=== PATIENT | female | born 1995 | race Caucasian/White ===

== ENCOUNTER → 2019-10-06 | Outpatient (CLI) | payer OTHER ==
[~2019-10-06] MED LIST: LAMO200T3 PO; MONO0.25 PO; MULTTAB20 PO; ZONI100C17 PO
--- NOTE | 2019-10-06 18:50 | REP ---
Radionuclide ventriculography: History: Pre chemo ejection fraction. Hodgkin's lymphoma. Technique: 26.0 mCi of technetium 99m labeled RBCs (UltraTag method) is administered. Left anterior oblique imaging is acquired. Cine imaging is acquired and semi automated ejection fraction and wall motion assessment is performed. Scintigraphic findings: Overall left ventricular ejection fraction is normal at 70.3%. Cine images show no evidence of regional wall motion abnormality. Semi automated quantitation shows no additional abnormality. Impression: Normal radionuclide ventriculography. Left ventricular ejection fraction 70.3%. Electronically Signed by Gui Moore MD 10/06/2019 06:42 P
== END ==
LOC: M RAD 13:17
PROVIDERS: ATTEND Internal Medicine Hematology & Oncology
DX: C81.90 Hodgkin lymphoma, unspecified, unspecified site (principal)
CPT/HCPCS: 78472; A9560

== ENCOUNTER → 2019-10-09 | Outpatient (CLI) | payer OTHER ==
--- NOTE | 2019-10-09 10:16 | PFTRPT ---
Height: 63.00 Inches Weight: 117.00 Lbs BSA: 1.54 Diagnosis: HODGKINS DISEASE DATE OF PROCEDURE: 10/09/2019 ORDERED BY: Dr. Cosby Spirometry: Study of excellent technical quality. Some difficulty with effort is identified. Forced vital capacity normal. FEV1 generally in proportion. Obstructive index is, therefore, normal. Flow Volume Loop: Expiratory limb of the flow volume loop does suggest suboptimal performance with the required maneuver. Although favorable bronchodilator response is identified, this finding is in question. Lung Volumes: Total lung capacity normal. Residual volume in proportion. Diffusing Capacity: Diffusing capacity normal. Hemoglobin: Hemoglobin acceptable at 13.4. Airway Mechanics: Airway resistance and conductance are normal. IMPRESSION: Less likely normal study, but clinical correlation with the above findings is required. MTDD
== END ==
LOC: M CARPUL 09:28
PROVIDERS: ATTEND Internal Medicine Hematology & Oncology
DX: C81.91 Hodgkin lymphoma, unspecified, lymph nodes of head, face, and neck (principal)

== ENCOUNTER → 2019-10-10 | Outpatient (CLI) | payer OTHER ==
[~2019-10-10] MED LIST changes: +GASTROGRAFIN SOLUTION 30ML (Q9963) As Ordered ONE; +ISOVUE-370 76% 100ML VIAL (Q9967) As Ordered ONE
--- NOTE | 2019-10-11 03:50 | REP ---
Clinical: Lymphoma. Technique: Axial contrast enhanced images from the lung bases to the pubic symphysis using oral (per protocol) and 100 ml Isovue 370 intravenous contrast material with coronal and sagittal re-formations. Delayed images of the abdomen obtained. Comparison: None. Findings: Lung bases are clear. Visualized portions of the heart and mediastinum are normal. Liver, spleen, pancreas, gallbladder, bilateral adrenal glands and kidneys are essentially normal. 4.9 cm simple left renal cyst noted. The enteric system is without obstruction or acute inflammatory process. Pelvis demonstrates normal bladder and age-appropriate uterus/adnexa. No intraperitoneal or retroperitoneal adenopathy. No ascites. No free air. Abdominal aorta and vasculature normal. Musculoskeletal structures are intact. Impression: 1. 4.9 cm simple left renal cyst. 2. No further acute abdominopelvic pathology appreciated. 3. No adenopathy. No ascites. No mass lesion. Electronically Signed by Kenny Joshi MD 10/11/2019 03:41 A
== END ==
LOC: M RAD 15:47
PROVIDERS: ATTEND Internal Medicine Hematology & Oncology
DX: C81.90 Hodgkin lymphoma, unspecified, unspecified site (principal); N28.1 Cyst of kidney, acquired
CPT/HCPCS: 74177; Q9963; Q9967

== ENCOUNTER → 2019-10-12 | Outpatient (CLI) | payer OTHER ==
[~2019-10-12] MED LIST changes: -GASTROGRAFIN SOLUTION 30ML (Q9963) As Ordered ONE; -ISOVUE-370 76% 100ML VIAL (Q9967) As Ordered ONE; +LIDOCAINE 1% MDV 20ML VIAL As Ordered ONE; +MIDAZOLAM INJ 2 MG/2 ML VIAL (J2250) As Ordered ONE; +PROMETHAZINE INJ 25 MG/ML VIAL (J2550) As Ordered ONE; +VANCOMYCIN HCL 500 MG/10 ML VIAL (J3370) As Ordered ONE; +diphenhydrAMINE INJ 50MG/ML VIAL (J1200) As Ordered ONE; +fentaNYL 100 MCG/2 ML INJECTION (J3010) As Ordered ONE
--- NOTE | 2019-10-12 13:13 | IRHP ---
[facility] IR Pre-Procedure H & P General Date of Service: Oct 12, 2019 Procedure: Same Day Surgery Interval History and Physical I have seen the patient and reviewed last H & P performed within 30 days. There is no significant interval change. History of Present Illness Chief Complaint The patient is a 24-year-old female admitted with a reason for visit of Hodgkins Disease, Chemo. PRE-PROCEDURE DIAGNOSIS: Hodgkin lymphoma HEART: normal rate. LUNGS: normal breathing at rest. ASA Classification ASA Classification: II-Mild systemic disease Mallampati Score: II NPO: Yes Problems with prior sedation: No Obstructive Sleep Apnea: No Plan moderate sedation Allergies Coded Allergies: Penicillins (Verified Allergy, Unknown, 10/05/19) VOMITING amoxicillin (Verified Allergy, Unknown, 10/05/19) VOMITING Home Medications Scheduled Lamotrigine (Lamotrigine), 600 MG PO DAILY, (Reported) Norgestimate-Ethinyl Estradiol ([place]-Linyah 28 Tablet), 1 TAB PO DAILY, (Reported) No122/Iron/Folic Acid ( Multi Tablet), 1 TAB PO DAILY, (Reported) Zonisamide (Zonisamide), 300-400 MG PO QPM, (Reported) VS, I&O, 24H, Fishbone Vital Signs/I&O Vital Signs Date Time Temp Pulse Resp B/P (MAP) Pulse Ox O2 Delivery O2 Flow Rate FiO2 10/12/19 12:39 98.2 92 16 100 Room Air BEVERLY HOLLOWAY MD Oct 12, 2019 13:13
--- NOTE | 2019-10-12 14:30 | POST-OPPD ---
Postoperative Procedure Note Date Of Procedure: Oct 12, 2019 Time Of Procedure: 14:29 PREOPERATIVE DIAGNOSIS: lymphoma POSTOPERATIVE DIAGNOSIS: same FINDINGS: patent right IJ PROCEDURE: right side port SURGEON: flaquito ANESTHESIA: mod sed ESTIMATED BLOOD LOSS: < 5 ml COMPLICATIONS: none POSTOPERATIVE CONDITION: stable BEVERLY HOLLOWAY MD Oct 12, 2019 14:30
[2019-10-12 15:05] VITALS: BP 128/73
--- NOTE | 2019-10-13 14:44 | REP ---
IR Ultrasound and fluoroscopy-guided port placement. IR Ultrasound of the neck. IR Moderate sedation. Clinical information: Lymphoma. Physician: Dr. Bailey. Procedure: The patient was advised of the benefits, risks, and alternatives of the procedure and informed consent was obtained. A time-out was performed with verification of the patient's name, MRN, site of procedure and type of procedure to be performed. The patient was positioned in the supine position on the angiographic table. The site was prepped and draped in the usual sterile fashion. Moderate sedation was performed by the physician including the presence of an independent trained observer who assisted and monitored the patient's level of consciousness and physiologic status. Following the administration of fentanyl and Versed, the physician spent 45 minutes of continuous face to face time with the patient. Ultrasound of the neck reveals a patent and compressible right internal jugular vein. Extensive right neck adenopathy. A fine arts packer radiograph reveals mediastinal adenopathy. The neck and anterior chest wall were anesthetized with lidocaine. The right internal jugular vein was accessed using a microintroducer needle under ultrasound guidance, via a lateral approach. An 018 wire was advanced into the superior vena cava, the needle was removed and a microsheath was placed. An Amplatz wire was then passed into the inferior vena cava. An incision at the internal jugular vein access site and anterior chest wall were made using a scalpel. An incision was made at the anterior chest wall. A small pocket was created using a combination of blunt and sharp dissection. A tunneling device was then used to pass the catheter from the pocket to the neck puncture site. An 8-Malian Angiodynamics Smart of the power port was then positioned in the pocket. The catheter was then measured and cut. The introducer sheath was exchanged for a peel-away sheath. The catheter was passed through the peel-away sheath into the internal jugular vein and the peel-away sheath was removed. The port tip was positioned at the cavoatrial junction. The port was then accessed with a Forte needle. The port flushes and aspirates well. The puncture site in the neck was closed. The chest wall incision was then closed with 2-0 Vicryl and 4-0 Monocryl. Glue and Steri-Strips were applied. A sterile dressing was then applied. The patient tolerated the procedure well and was returned to the PRU in stable condition. Estimated blood loss: <5 ml. Complications: None. Conclusion: 1. Successful placement of an 8-Malian Angiodynamics Smart power port via the right internal jugular vein. The port is ready for immediate use. 2. Patient to follow up in IR clinic in 2 weeks. Thank you for this referral. Electronically Signed by Jerica Bailey MD 10/13/2019 02:42 P
== END ==
LOC: M IRPRO 12:26
PROVIDERS: ATTEND Internal Medicine Hematology & Oncology
DX: C81.90 Hodgkin lymphoma, unspecified, unspecified site (principal)
CPT/HCPCS: 36561; 99152; 99153; C1769; C1788; C1894; J1200; J2250; J3010; J3370

== ENCOUNTER → 2019-10-17 | Outpatient (CLI) | payer OTHER ==
[~2019-10-17] MED LIST changes: -LIDOCAINE 1% MDV 20ML VIAL As Ordered ONE; -MIDAZOLAM INJ 2 MG/2 ML VIAL (J2250) As Ordered ONE; -PROMETHAZINE INJ 25 MG/ML VIAL (J2550) As Ordered ONE; -VANCOMYCIN HCL 500 MG/10 ML VIAL (J3370) As Ordered ONE; -diphenhydrAMINE INJ 50MG/ML VIAL (J1200) As Ordered ONE; -fentaNYL 100 MCG/2 ML INJECTION (J3010) As Ordered ONE
--- NOTE | 2019-10-17 19:48 | REP ---
Whole body PET CT scan for staging of Hodgkin's lymphoma: Comparison is the abdomen/pelvis CT dated 10/10/2019. Whole-body scanning is performed from skull base to the upper thighs. Neck and supraclavicular areas: There is hypermetabolic uptake in numerous cervical nodes bilaterally with significant of the greater number of nodes on the left. The maximal standard uptake value on the left is 14.4 and on the right is 10.6. Chest: There is uptake in numerous mediastinal nodes with a maximal standard uptake value measuring 9.8. There is uptake in a right internal mammary node with a standard uptake value of 4.8. There is uptake in multiple left axillary nodes with a maximal standard uptake value of 5.9. There is uptake in a right supraclavicular node with the maximal uptake value of 10.5. Abdomen, pelvis and upper thighs: There are no hypermetabolic foci. Impression: There are multiple hypermetabolic foci in the neck bilaterally and in the chest as described. No hypermetabolic foci are identified in the abdomen, pelvis or upper thighs. The study is performed with 8.65 mCi of F 18 FDG. Electronically Signed by Raf Collins MD 10/17/2019 07:39 P
== END ==
LOC: M PLARAD 13:02
PROVIDERS: ATTEND Internal Medicine Hematology & Oncology
DX: C81.98 Hodgkin lymphoma, unspecified, lymph nodes of multiple sites (principal)
CPT/HCPCS: 78815; A9552

== ENCOUNTER → 2019-10-24 | Outpatient (POV) | payer OTHER ==
[~2019-10-24] VITALS: Ht 157.5 cm; Wt 53.2 kg
[~2019-10-24] MED LIST changes: +MULT1TAB16 PO; +ONDA8TAB10 PO; +PROC10TA4 PO
[2019-10-24 09:45] VITALS: BP 127/72
--- NOTE | 2019-10-25 10:03 | IRPN ---
[facility] IR Progress Note IR Progress Note DATE: Oct 24, 2019 Status post port placement. Doing well. No fevers or chills. Describe some discomfort at the venotomy site associated with old shoulder injury. On examination, port site appears to be healing well. No redness, tenderness, fluctuance or discharge. Impression: Doing well status post port placement. Discomfort will likely resolve as catheter incorporates itself into the tissues. No further follow-up scheduled unless initiated by patient and/or referring provider. Thank you for this referral Allergies Coded Allergies: Penicillins (Verified Allergy, Unknown, 10/05/19) VOMITING amoxicillin (Verified Allergy, Unknown, 10/05/19) VOMITING VS,Fishbone, I+O VS, Fishbone, I+O Vital Signs Date Time Temp Pulse Resp B/P (MAP) Pulse Ox O2 Delivery O2 Flow Rate FiO2 10/24/19 09:45 97.2 101 18 127/72 (90) 97 Room Air BEVERLY HOLLOWAY MD Oct 25, 2019 10:03
== END ==
LOC: M IRPOV 09:39
PROVIDERS: ATTEND Radiology Diagnostic Radiology
DX: Z45.2 Encounter for adjustment and management of vascular access device (principal)

== ENCOUNTER → 2019-11-02 | Outpatient (CLI) | payer OTHER ==
[~2019-11-02] MED LIST changes: +ISOVUE-370 76% 100ML VIAL (Q9967) As Ordered ONE; +LIDO2.5C15 TOP
--- NOTE | 2019-11-02 11:22 | REPVR ---
PROCEDURE INFORMATION: Exam: CT Neck With Contrast Exam date and time: 11/02/2019 11:01 AM Age: 24 years old Clinical indication: Condition or disease; Cancer; Other: Hodgkins lymphoma; Patient HX: S/P chemo; Additional info: Hodkins lymphoma TECHNIQUE: Imaging protocol: Computed tomography images of the neck with intravenous contrast. Radiation optimization: All CT scans at this facility use at least one of these dose optimization techniques: automated exposure control; mA and/or kV adjustment per patient size (includes targeted exams where dose is matched to clinical indication); or iterative reconstruction. Contrast material: ISOVUE 370; Contrast volume: 75 ml; Contrast route: IV; COMPARISON: PT PET/CT Skull/mid thigh 10/17/2019 3:21 PM FINDINGS: Nasopharynx: Unremarkable. Oropharynx: Unremarkable. No significant tonsillar enlargement. Hypopharynx: Unremarkable Larynx: Unremarkable. Normal epiglottis. Retropharyngeal space: Unremarkable. Submandibular/Parotid glands: Normal. Glands are normal in size. Thyroid: Normal. No enlarged or calcified nodules. Lymph nodes: There is bulky, extensive multilevel left cervical lymphadenopathy extending into the left supraclavicular region. Dominant left lower IJ lymph node measures up to 4 cm in diameter. Less pronounced lymphadenopathy is noted on the right.. Trachea: Visualized trachea is unremarkable. Lungs: Unremarkable as visualized. Bones/joints: Unremarkable. No acute fracture. Soft tissues: Unremarkable. No significant soft tissue swelling. IMPRESSION: Severe, extensive masslike cervical adenopathy the asymmetric to the left, compatible with submitted history lymphoma. Similar findings are parent on preceding PET-CT examination. Electronically signed by: Talya Pearce On 11/02/2019 11:22:11 AM
--- NOTE | 2019-11-02 11:30 | REP ---
Clinical: Hodgkin's lymphoma. Technique: Axial contrast enhanced images from the thoracic inlet to the upper abdomen with coronal and sagittal re-formations using 100 ml Isovue 370 intravenous contrast material. Comparison: None. Findings: Significant adenopathy at the visualized lower neck and thoracic inlet is appreciated along with mediastinal adenopathy. Specifically, right paratracheal shailesh complex measures roughly 4.0 x 2.9 x 5.3 cm along with prevascular lymph nodes measuring 1.6 x 1.3 x 1.5 cm. Left axillary lymph node measures 1.8 x 1.7 x 2.2 cm. No hilar adenopathy identified. The bilateral lung wallis are well-aerated and clear. No consolidation, nodule or mass. No effusion. No pneumothorax. Tracheobronchial tree is patent. Mediastinum demonstrates normal thoracic aorta, pulmonary vasculature and heart/pericardium. Surrounding musculoskeletal structures are intact without focal acute abnormality. [id number] is identified with tip extending into the SVC/right atrium. Impression: 1. Marked adenopathy noted at the visualized neck/thoracic inlet along with mediastinal adenopathy and solitary left axillary lymph node. 2. The bilateral lung wallis are clear. Electronically Signed by Kenny Joshi MD 11/02/2019 11:21 A
== END ==
LOC: M RAD 10:27
PROVIDERS: ATTEND Internal Medicine Hematology & Oncology
DX: C81.91 Hodgkin lymphoma, unspecified, lymph nodes of head, face, and neck (principal)
CPT/HCPCS: 70491; 71260; Q9967

== ENCOUNTER → 2019-11-07 | Outpatient (CLI) | payer OTHER ==
[~2019-11-07] MED LIST changes: -ISOVUE-370 76% 100ML VIAL (Q9967) As Ordered ONE
[2019-11-07 11:49] LABS: BASO % 0.7 % (0.0-1.0); EOS # 0.1 10^3/uL (0.0-0.5); EOS % 2.7 % (0.0-3.0); HEMATOCRIT 38.9 % (36.0-47.0); HEMOGLOBIN 13.1 g/dl (12.0-15.5); LYMPH # 1.4 10^3/uL (1.5-5.0); LYMPH % 32.2 % (24.0-44.0); MEAN CORPUSCULAR HEMOGLOBIN 30.5 pg (27.0-33.0); MEAN CORPUSCULAR HGB CONC 33.7 g/dl (32.0-36.5); MEAN CORPUSCULAR VOLUME 90.5 fl (80.0-96.0); MONO # 0.3 10^3/uL (0.0-0.8); MONO % 6.9 % (0.0-5.0); NEUTROPHILS # 2.6 10^3/uL (1.5-8.5); NEUTROPHILS % 57.1 % (36.0-66.0); PLATELET COUNT, AUTOMATED 461 10^3/uL (150-450); WHITE BLOOD COUNT 4.5 10^3/uL (4.0-10.0)
[2019-11-07 12:11] LABS: ALBUMIN 3.7 GM/DL (3.2-5.2); ALT/SGPT 15 U/L (12-78); BILIRUBIN,TOTAL 0.2 MG/DL (0.2-1.0); BLOOD UREA NITROGEN 13 MG/DL (7-18); CALCIUM LEVEL 9.5 MG/DL (8.5-10.1); CARBON DIOXIDE LEVEL 26 MEQ/L (21-32); CHLORIDE LEVEL 104 MEQ/L (98-107); CREATININE FOR GFR 0.86 MG/DL (0.55-1.30); GLOMERULAR FILTRATION RATE > 60.0 (>60); GLUCOSE, FASTING 91 MG/DL (70-100); SODIUM LEVEL 138 MEQ/L (136-145); TOTAL PROTEIN 7.7 GM/DL (6.4-8.2)
[2019-11-07 12:21] LABS: TOTAL 25(OH) VITAMIN D 25.6 NG/ML (30.0-100.0)
[2019-11-07 12:22] LABS: FOLATE > 24.0 NG/ML; VITAMIN B12 LEVEL 341 PG/ML
== END ==
LOC: M LAB 10:51
PROVIDERS: ATTEND Psychiatry & Neurology Neurology
DX: Z51.81 Encounter for therapeutic drug level monitoring (principal); Z79.899 Other long term (current) drug therapy; R56.9 Unspecified convulsions

== ENCOUNTER → 2019-12-19 | Outpatient (CLI) | payer OTHER ==
[~2019-12-19] MED LIST changes: +ALLE180T33 PO
--- NOTE | 2019-12-19 15:50 | REP ---
PET/CT: HISTORY: Restaging Hodgkin's lymphoma. Status post chemotherapy. COMPARISONS: Comparison PET/CT study October 17, 2019. Comparison CT neck and chest with IV contrast November 02, 2019. TECHNIQUE: 51 minutes following the intravenous injection of a 8.41 mCi dose of F-18 FDG, three-dimensional PET scintigraphy is acquired from the skull base to the proximal thighs. Triplanar noncontrast CT scanning is acquired through the same anatomic range for attenuation correction, and image registration with scan parameters optimized to minimize radiation exposure to the patient. PET scintigraphy and CT datasets were fused and displayed on a workstation with multiplanar and projection display capability. PET/CT FINDINGS: PET scintigraphy is much improved from the comparison study. The bulky left neck lymphadenopathy is improved. There is still some hypermetabolic uptake, mild in degree in the head and neck soft tissues. Maximum standard uptake value in these residual, improved lymph nodes, is in the range of 2.14-4.54. Previously 14.4. They are much improved in size. There is no abnormal hypermetabolic uptake in the hilar or mediastinal structures. No abnormal pulmonary parenchymal uptake is seen. No abnormal uptake is seen in the liver or spleen. A cyst is again noted in the left kidney. IMPRESSION: Significant improvement noted in the bilateral neck and mediastinal hypermetabolic uptake. Improvement noted in size as well. Electronically Signed by Gui Moore MD 12/19/2019 04:50 P
== END ==
LOC: M PLARAD 09:07
PROVIDERS: ATTEND Internal Medicine Hematology & Oncology
DX: C81.91 Hodgkin lymphoma, unspecified, lymph nodes of head, face, and neck (principal); N28.1 Cyst of kidney, acquired; Z92.21 Personal history of antineoplastic chemotherapy
CPT/HCPCS: 78815; A9552

== ENCOUNTER → 2019-12-20 | Outpatient (CLI) | payer OTHER ==
--- NOTE | 2019-12-20 10:58 | PFTRPT ---
Site: [facility], [address] [place], [address] ID: [id number] Name: DANNI MILIAN Visit Date: 12/20/2019 Second ID: [id number] Referring Doctor: Ruben Hatfield MD Reviewing Doctor: Eliud Cosby MD Asset Availability Leader: Miriam Beltran Age: 24 : 1995 Sex: Female Race: Height: 63.00 Inches Weight: 120.00 Lbs BSA: 1.56 Order IDs: [id number] Requested Test(s): <RESP-PFT.DLCO> Diagnosis: HODGKINS DISEASE test meet the ATS standards for acceptability and repeatability. IVC is less than 90% of VC. DLCO may be underestimated. Review Status: Not Reviewed Pre-Bronch Post-Bronch Pred Actual %Pred Actual %Chng SPIROMETRY FVC (L) 3.67 3.36 91 FEV1 (L) 3.17 3.04 95 FEV1/FVC (%) 86 90 105 FEF 25% (L/sec) 5.72 4.55 79 FEF 50% (L/sec) 4.66 3.78 81 FEF 75% (L/sec) 2.02 2.06 101 FEF 25-75% (L/sec) 3.56 3.34 93 FEF Max (L/sec) 6.78 4.61 67 FIVC (L) 2.68 FIF 50% (L/sec) 3.96 3.16 79 FIF Max (L/sec) 3.41 MVV (L/min) 110 51 46 Expiratory Time (sec) 6.56 Back Extrap Vol (L) 0.12 Time To FEFmax (sec) 0.147 LUNG VOLUMES SVC (L) 3.67 2.80 76 IC (L) 2.24 2.02 90 ERV (L) 1.43 0.78 54 TGV (L) 2.66 2.34 87 RV (Pleth) (L) 1.23 1.56 127 TLC (Pleth) (L) 4.90 4.36 89 RV/TLC (Pleth) (%) 25 36 143 DIFFUSION DLCOunc (ml/min/mmHg) 25.14 27.87 110 DLCOcor (ml/min/mmHg) 25.14 27.71 110 DL/VA (ml/min/mmHg/L) 5.13 4.86 94 VA (L) 4.90 5.70 116 BHT (sec) 10.82 IVC (L) 2.46 TLC (SB) (L) 5.85 AIRWAYS RESISTANCE Raw (cmH2O/L/s) 1.86 1.76 94 Gaw (L/s/cmH2O) 1.03 0.63 60 sRaw (cmH2O*s) 4.76 4.12 86 sGaw (1/cmH2O*s) 0.20 0.26 127 BLOOD GASES Hgb (gm/dL) 13.6
== END ==
LOC: M CARPUL 09:47
PROVIDERS: ATTEND Internal Medicine Hematology & Oncology
DX: C81.91 Hodgkin lymphoma, unspecified, lymph nodes of head, face, and neck (principal)

== ENCOUNTER → 2020-02-20 | Outpatient (CLI) | payer OTHER ==
[~2020-02-20] MED LIST changes: +POTA10CA32 PO; +RIZA10TA58 PO; +TRI-1TAB PO
--- NOTE | 2020-02-21 08:42 | REP ---
REASON FOR EXAM: Followup Hodgkin's lymphoma. Prior PET/CT examinations 12/19/2019 and 10/17/2019 have been reviewed along with prior CT examinations of the neck and chest of 11/02/2019 and abdomen and pelvis of 10/10/2019. The patient finished last regimen of chemotherapy 02/14/2020. After the intravenous administration of 8.5 millicuries of FDG 18, triplane whole body PET/CT was performed from the skull base to the mid thigh. The patient has currently stage II A Hodgkin's lymphoma. The patient's previous measured lesions have Deauville scores of 3 out of 4. In the left neck cervical lymph node chain, there is a single focus of abnormal hypermetabolic activity which has maximal SUV valve of 6.57. Although, hypermetabolic, the size of this lesion has not increased compared to the latest prior PET/CT. There is a focus of hypermetabolic activity seen in the inferior axilla bilaterally. This is immediately adjacent to the thorax and is likely secondary to accessory muscles of respiration and activity within those muscles rather than lymphadenopathy since standard CT scanning through that region shows no corresponding lymphadenopathy or even a normal size lymph node. Additionally, there are other areas clearly defined as muscular uptake. Aside from hypermetabolic activity seen in the left neck as described above, no other abnormal hypermetabolic foci are seen in the neck, chest, abdomen or pelvis. IMPRESSION: There is a single abnormal hypermetabolic focus seen in the left neck as described above and when the CT components of this exam are compared to the CT components of the latest prior exam of 12/19/2019, the size of that node in the left lymph node chain has decreased in size, although the maximal SUV valve has increased somewhat with today's highest reading of 6.57 to the prior exam's highest reading of 4.54. The maximal organ uptake in the liver is 3.18 and the maximal blood pool uptake is 2.54. This renders no change in the patient's Deauville score, which again based on that 5-point scale, is 4 out of 5. Electronically Signed by Huber Esposito DO 02/21/2020 11:25 A
== END ==
LOC: M PLARAD 14:29
PROVIDERS: ATTEND Internal Medicine Medical Oncology
DX: C81.78 Other Hodgkin lymphoma, lymph nodes of multiple sites (principal)
CPT/HCPCS: 78815; A9552

== ENCOUNTER → 2020-04-04 | Outpatient (CLI) | payer OTHER ==
[~2020-04-04] MED LIST changes: +MAGICMW SSP; +POTA20TA6 PO
== END ==
LOC: M ONCR 09:51
PROVIDERS: ATTEND Radiology Radiation Oncology
DX: C81.18 Nodular sclerosis Hodgkin lymphoma, lymph nodes of multiple sites (principal)

== ENCOUNTER → 2020-05-20 | Outpatient (RCR) | payer OTHER | LOC: M ONCR 04-29 14:52 | PROVIDERS: ATTEND General Practice | DX: C81.18 Nodular sclerosis Hodgkin lymphoma, lymph nodes of multiple sites (principal); Z88.0 Allergy status to penicillin ==

== ENCOUNTER 2020-05-28 08:46 | Outpatient (RCR) | payer OTHER | END 2020-06-19 | LOC: M ONCR 08:46 | PROVIDERS: ATTEND General Practice | DX: C81.18 Nodular sclerosis Hodgkin lymphoma, lymph nodes of multiple sites (principal); J02.9 Acute pharyngitis, unspecified; Z88.0 Allergy status to penicillin ==

== ENCOUNTER → 2020-07-16 | Outpatient (CLI) | payer OTHER ==
--- NOTE | 2020-07-17 08:39 | REP ---
INDICATION: RESTAGING CLASSICAL HODGKINS LYMPHOMA COMPARISON: Comparison PET-CT studies are reviewed from February 20, 2020, December 19, 2019, and October 17, 2019.. TECHNIQUE: 1 hour and 43 minutes following the intravenous injection of a 8.40 mCi dose of F-18 FDG, three-dimensional PET scintigraphy is acquired from the skull base to the proximal thighs. Triplanar noncontrast CT scanning is acquired through the same anatomic range for attenuation correction, and image registration with scan parameters optimized to minimize radiation exposure to the patient. PET scintigraphy and CT datasets were fused and displayed on a workstation with multiplanar and projection display capability. FINDINGS: The metabolic activity in the 2 reference organs is assessed as follows: Liver maximum standard uptake value is 2.93. Blood pool maximum standard uptake value is 2.29. In the head and neck soft tissues, there is multifocal bilateral brown fat uptake. There is 1 normal-sized lymph node in the neck on the left just deep to the sternocleidomastoid muscle at the level of the hyoid bone. This measures only 7 mm in short axis dimension. It is not pathologically enlarged. There is discernible FDG accumulation, maximum standard uptake value 2.83. This is felt to be Deauville score 2/5. Previously maximum standard uptake value here was 6.57. No other abnormal hypermetabolic uptake is seen in the head and neck. There are 2 foci of borderline uptake at the posterior pleural surface of the apex of each lung, 1 on each side. There is no discernible pulmonary parenchymal opacity and these are of doubtful significance. Maximum standard uptake value here is 2.68 on the right and 2.23 on the left. There is a new focus of hypermetabolic uptake in the posterior 6th rib on the left at its junction with the transverse process. No bony destructive lesion is seen. No pulmonary parenchymal or pleural mass is observed. However, maximum standard uptake value which appears to be in the posterior segment of the left 6th rib is 6.88. Since this is new, Deauville score here would be 5. No other abnormal skeletal hypermetabolic uptake is seen. No other abnormal uptake is seen within the thorax. No extrathoracic hypermetabolic uptake is observed. No abnormal uptake is seen in the abdomen or pelvis. PET-CT is otherwise unremarkable. IMPRESSION: There is a new focus of hypermetabolic uptake which appears to be in the left posterior 6th rib without a corresponding abnormality on accompanying CT images. No adjacent pleural or parenchymal changes are seen. This is of uncertain significance although SUV value is moderately elevated. There is a identifiable but normal sized lymph node in the left cervical lymph node chain with maximum standard uptake value of 2.83. <Electronically signed by Juwan Moore > 07/17/20 [id number]
== END ==
LOC: M PLARAD 07:28
PROVIDERS: ATTEND General Practice
DX: C81.18 Nodular sclerosis Hodgkin lymphoma, lymph nodes of multiple sites (principal); R93.7 Abnormal findings on diagnostic imaging of other parts of musculoskeletal system
CPT/HCPCS: 78815; A9552

== ENCOUNTER → 2020-07-24 | Outpatient (CLI) | payer OTHER ==
--- NOTE | 2020-07-24 09:55 | RADONC ---
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 She completed 4 cycles of ABVD and had a persistent focus of DS 4 disease in a left cervical node on post chemotherapy PET. She underwent ISRT with 36 Gy to the left cervical node and 30 Gy to initially involved sites of disease in 20 fractions completed on 05/28/20. Diagnosis/Treatment History Oncologic History Diagnosis: Stage IIA Hodgkin's Lymphoma- classic, nodular-sclerosing. Meets 1/4 criteria for unfavorable disease, i.e., has 4 sites of disease - b/l neck, mediastinal, LAD and left axillary LAD, but otherwise has no bulky mediastinal disease, no B symptoms and ESR is 23. Initial CT Neck/Chest- largest Lt neck conglomerate lymph node mass 4.5 x 3.5 cm, largest right paratracheal mass 3.5 x 3.4 cm, no hilar LAD, left axilla - 1.[address], right neck/right supraclavicular largest LN 0.8 x 1.2 cm, ESR 23 on 10/05/19 -09/11/2019- left level [address] BX - classical Hodgkin's lymphoma, nodular sclerosis. (-) CD23, (-) CD20, (-) CD45/LCA (-), DELIO RK (-), CD15 Elsie M1 - focally positive, CD30 (+), PAX5 weakly (+) - IHC C/subdural nodular sclerosis subtype. -Relocated to [place]. -10/06/19- MUGA EF - 70.3%, 10/17/19 baseline PET multiple hypermetabolic foci in the neck b/l and chest. -10/30/2019: commenced ABVD for 4 cycles -12/19/2019 PET-CT: Significant improvement noted in the bilateral neck and mediastinal hypermetabolic uptake. Improvement noted in size as well. -02/20/2020 PET/CT scan. A single focus of left cervical chain with SUV of 6.57 -04/30/20-05/28/20 ISRT 36 Gy to DS4 focus L neck 30 Gy to BL cervical, supraclav, axillae in 20 fractions 07/16/20 PET-CT FINDINGS: The metabolic activity in the 2 reference organs is assessed as follows: Liver maximum standard uptake value is 2.93. Blood pool maximum standard uptake value is 2.29. In the head and neck soft tissues, there is multifocal bilateral brown fat uptake. There is 1 normal-sized lymph node in the neck on the left just deep to the sternocleidomastoid muscle at the level of the hyoid bone. This measures only 7 mm in short axis dimension. It is not pathologically enlarged. There is discernible FDG accumulation, maximum standard uptake value 2.83. This is felt to be Deauville score 2/5. Previously maximum standard uptake value here was 6.57. No other abnormal hypermetabolic uptake is seen in the head and neck. There are 2 foci of borderline uptake at the posterior pleural surface of the apex of each lung, 1 on each side. There is no discernible pulmonary parenchymal opacity and these are of doubtful significance. Maximum standard uptake value here is 2.68 on the right and 2.23 on the left. There is a new focus of hypermetabolic uptake in the posterior 6th rib on the left at its junction with the transverse process. No bony destructive lesion is seen. No pulmonary parenchymal or pleural mass is observed. However, maximum standard uptake value which appears to be in the posterior segment of the left 6th rib is 6.88. Since this is new, Deauville score here would be 5. No other abnormal skeletal hypermetabolic uptake is seen. No other abnormal uptake is seen within the thorax. No extrathoracic hypermetabolic uptake is observed. No abnormal uptake is seen in the abdomen or pelvis. PET-CT is otherwise unr emarkable. IMPRESSION: There is a new focus of hypermetabolic uptake which appears to be in the left posterior 6th rib without a corresponding abnormality on accompanying CT images. No adjacent pleural or parenchymal changes are seen. This is of uncertain significance although SUV value is moderately elevated. There is a identifiable but normal sized lymph node in the left cervical lymph node chain with maximum standard uptake value of 2.83. Interval History Dannielle feels well, her dysphagia has improved significantly, she is able to eat pineapple and other citrus fruits again without discomfort. Her taste for cheesecake and sweets has been affected however and have yet to return to normal. The skin of her BL neck were red and peeling, this however has subsided and mild hyperpigmentation is all that remains. She reports some LANDEROS when she goes up stairs, she has no pleuritic pain with this. 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 She denies any back pain, she did however have an mild trauma to her left side at work last week before her PET- CT, a bookcase fell and hit her left side. She had no lingering pain or discomfort the day after this. Appetite is good and weight is stable. No fevers, chills, night sweats. Current Therapy Surveillance Stage HL stage IIA unfavorable per GHSG criteria, with known chemorefractory left cervical node (DS 4) Social History: Non-smoker Non-drinker Allergies / Meds Allergies: Coded Allergies: Penicillins (Verified Allergy, Unknown, 10/05/19) VOMITING amoxicillin (Verified Allergy, Unknown, 10/05/19) VOMITING Home Meds Active Scripts Magic Mouthwash (First-Mouthwash Blm) 1 Ea Susp, 15 ML SSP QIDP PRN for MUCOSITIS, #240 ML 5 Refills (Diphenhydramine/maalox/lidocaine 1:1:1) May compound if kit unavailable/not covered by insurance Prov:CASSIE VALENZUELA MD 05/10/20 Potassium Chloride (Potassium Chloride) 10 Meq Capsule.er, 10 MEQ PO DAILY, #30 CAP 1 Refill Prov:PEÑA HESS MD 01/15/20 Lidocaine/Prilocaine (Lidocaine-Prilocaine Cream) 2.5%/2.5% Cream..g., 1 DOSE TOP ASDIRECTED, #30 GRAMS 1 Refill Apply dime size to port area. Do not rub in, cover with saran wrap to protect clothing. Prov:ROSANA MONTEMAYOR MD 10/30/19 Prochlorperazine Maleate (Prochlorperazine Maleate) 10 Mg Tablet, 1 TAB PO Q4- 6HP PRN for NAUSEA, #40 TAB 1 Refill Prov:ROSANA MONTEMAYOR MD 10/26/19 Ondansetron HCl (Ondansetron HCl) 8 Mg Tablet, 8 MG PO BID for nausea/vomiting, #30 TAB 1 Refill TAKE ONE TAB BY MOUTH TWICE A DAY ON DAYS 2-5 OF CHEMO, THEN THREE TIMES A DAY NEEDED FOR NAUSEA Prov:ROSANA MONTEMAYOR MD 10/26/19 Reported Medications Rizatriptan Benzoate (Rizatriptan) 10 Mg Tab.rapdis, 10 MG PO DAILY 01/29/20 Norgestimate-Ethinyl Estradiol (Hht-Ko-Njzafffw Tablet) 1 Each Tablet, 1 TAB PO DAILY for 30 Days, #30 TAB 12/25/19 Fexofenadine HCl (Celeste Allergy) 180 Mg Tablet, 180 MG PO DAILY for allergy symptoms for 30 Days, #30 TAB 11/27/19 Mv-Min/Iron/Folic/Calcium/Vitk (Women's Multivitamin Tablet) 1 Each Tablet, 1 TAB PO DAILY, TAB 10/23/19 Zonisamide (Zonisamide) 100 Mg Capsule, 300-400 MG PO QPM for 30 Days, CAP 10/05/19 Lamotrigine (Lamotrigine) 200 Mg Tablet, 600 MG PO DAILY for 30 Days, #30 TAB 10/05/19 Review of Systems Review of Systems Constitutional: Reports: Normal appetite; Denies: Chills, Fever, Night Sweats, Weakness, Fatigue, Weight Loss Eyes: Denies: Pain, Vision change HEENT: Denies: Head Aches Skin: Denies: Rash, Lesions Pulmonary: Reports: Dyspnea; Denies: Cough, Pleuritic Chest Pain Cardiovascular: Denies: Chest Pain, Palpitations Gastrointestinal: Denies: Nausea, Vomiting, Abdominal Pain Genitourinary: Denies: Dysuria, Frequency Hematologic: Denies: Bruising, Bleeding Excessively Endocrine: Denies: Polydipsia, Heat Intolerance, Cold Intolerance Musculoskeletal: Denies: Neck pain, Arm pain, Back pain, Joint pain Neurological: Denies: Weakness, Numbness, Change in Speech Psych: Reports: Mood Normal; Denies: Anxiety, Depression Physical Examination Vital Signs Ht 62" Wt 134 lb BMI 24 T 97.5 P 91 RR 16 BP 101/67 O2 98% Pain 0 Fatigue 1 General Exam: Positive: Alert, Cooperative; Negative: No Acute Distress Eye Exam: Positive: PERRLA ENT EXAM: Positive: Atraumatic, Pharynx Normal Neck Exam: Positive: Supple; Negative: Lymphadenopathy Chest Exam: Positive: Clear to auscultation, Normal air movement; Negative: Wheezing Heart Exam: Positive: Rate Normal, Regular Rhythm Abdomen Exam: Positive: Soft; Negative: Tenderness, Hepatospenomegaly Extremity Exam: Negative: Edema Skin Exam: Positive: Nl turgor and temperature, Other skin issue (Mild hyperpigmentation noted BL low cervical and supraclavicular skin); Negative: Rash Neuro Exam: Positive: Normal Gait, Normal Speech, Strength at 5/5 X4 ext, Cranial Nerves 3-12 NL Psych Exam: Positive: Mental status NL, Mood NL; Negative: Anxiety Diagnostic and Laboratory Diagnostic Review Radiologic images, relevant labs and pathology reports were personally reviewed and discussed with Ms. Romo. Assessment and Plan Impression Assessment Ms. 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 She completed 4 cycles of ABVD and had a persistent focus of DS 4 disease in a left cervical node on post chemotherapy PET. She underwent ISRT with 36 Gy to the left cervical node and 30 Gy to in itially involved sites of disease in 20 fractions completed on 05/28/20. She is doing well overall, nearly recovered from her post-RT sequelae. She has some persistent skin hyperpigmentation which may be permanent. I addition she has some dysgeusia which I expect will resolve in the coming months. 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 I think it would be prudent to repeat PFTs within 1 year. This can be considered at a later appointment. I will oversee her survivorship care including TFTs, PFTs, heart function per NCCN guidelines beginning with her 6 month follow up appointment. In the meantime, she has a PET-CR in the initially involved and subsequently consolidated sites. This is reassuring. However she has on her most recent PET- CT an ill-defined avid focus in the left posterior 6th rib and/or possibly the pleura. This is asymptomatic, may be related to recent minor trauma, or sub- clinical infection. It may also represent extranodal relapse although per the literature this would be especially uncommon. Despite this I think we must follow closely given that she had a chemo refractory focus of disease in her neck in the setting of initial bulk which may speak to bad biology. In discussing with radiology, we agreed that it would be best to follow up this abnormality with a short interval PET-CT in 2 months time. If the focus persists or declares itself malignant morphologically, I would then proceed without hesitation to biopsy. My hope is that it resolves spontaneously however. Dannielle agrees with this plan. I will relay these findings to Dr. Kang who is also seeing her in the coming weeks. Performance Status ECOG 0 Plan PET-CT 2 months to follow new avid focus left posterior 6th rib/pleura Will pursue biopsy if focus persists at that time Reassuring is the metabolic CR in the HN region Will order survivorship studies as mentioned above once the etiology of new lesion is resolved Ms. Romo was encouraged to call with questions or concerns in the interim period. CASSIE VALENZUELA MD Jul 24, 2020 09:55
== END ==
LOC: M ONCR 08:46
PROVIDERS: ATTEND General Practice
DX: C81.18 Nodular sclerosis Hodgkin lymphoma, lymph nodes of multiple sites (principal)

== ENCOUNTER → 2020-10-01 | Outpatient (CLI) | payer OTHER ==
--- NOTE | 2020-10-02 14:58 | REP ---
INDICATION: RESTAGING HODGKIN LYMPHOMA MULTIPLE SITES C81.18. COMPARISON: 07/16/[address] chest 11/02/2019, CT neck 11/02/2019, and CT abdomen and pelvis 10/10/2019. TECHNIQUE: After the intravenous administration of 8.85 mCi of FDG 18 triplane whole-body PET-CT was performed from the skull base to the mid thigh. FINDINGS: The bulky lymphadenopathy seen on the prior CT examination of the neck has improved significantly when the CT component of this CT-PET is compared to the prior CT scan. An exact comparison is difficult since the diagnostic CT was performed after intravenous contrast administration which is contrary to the way this CT examination was performed. There is, however, hypermetabolic activity seen within the bilateral cervical lymph node chain, right greater than left, and with SUV values ranging from 2.5 to 3.0 as maximal values. Even the small round lymph nodes in both right and left paraspinal spaces are hypermetabolic with maximal SUV values of 2.8 The bulky adenopathy seen previously in the mediastinum on the prior CT scan is markedly improved. Borderline and mildly enlarged mediastinal lymph nodes are again noted but there is no evidence of hypermetabolic activity seen in any of those lymph nodes and having maximal SUV values of 1.96. No other areas of abnormal hypermetabolic activity are seen in the neck, chest, abdomen, or pelvis. IMPRESSION: Hypermetabolic neck activity and related findings as described above. <Electronically signed by Huber Esposito > 10/02/20 [id number]
== END ==
LOC: M PLARAD 09:09
PROVIDERS: ATTEND General Practice
DX: C81.18 Nodular sclerosis Hodgkin lymphoma, lymph nodes of multiple sites (principal)
CPT/HCPCS: 78815; A9552

== ENCOUNTER → 2020-10-16 | Outpatient (CLI) | payer OTHER ==
--- NOTE | 2020-10-16 16:16 | RADONC ---
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 She completed 4 cycles of ABVD and had a persistent focus of DS 4 disease in a left cervical node on post chemotherapy PET. She underwent ISRT with 36 Gy to the left cervical node and 30 Gy to initially involved sites of disease in 20 fractions completed on 05/28/20. On post RT PET from 07/16/20 to confirm CR the left cervical node responded and was DS 2, there was however a new focus in the left posterior 6th rib of undetermined significance. This was followed with PET on 10/01/20 which revealed no uptake in the rib and no uptake in the neck confirming CR. She is seen today to initiate survivorship phase of care. Diagnosis/Treatment History Oncologic History Stage IIA early unfavorable NSHD (bulk) Meets 1/4 criteria for unfavorable disease, i.e., has 4 sites of disease - b/l neck, mediastinal, LAD and left axillary LAD, but otherwise has no bulky mediastinal disease, no B symptoms and ESR is 23. Initial CT Neck/Chest- largest Lt neck conglomerate lymph node mass 4.5 x 3.5 cm, largest right paratracheal mass 3.5 x 3.4 cm, no hilar LAD, left axilla - 1.[address], right neck/right supraclavicular largest LN 0.8 x 1.2 cm, ESR 23 on 10/05/19 -09/11/2019- left level [address] BX - classical Hodgkin's lymphoma, nodular sclerosis. (-) CD23, (-) CD20, (-) CD45/LCA (-), DELIO RK (-), CD15 Elsie M1 - focally positive, CD30 (+), PAX5 weakly (+) - IHC C/subdural nodular sclerosis subtype. -Relocated to [place]. -10/06/19- MUGA EF - 70.3%, 10/17/19 baseline PET multiple hypermetabolic foci in the neck b/l and chest. -10/30/2019: commenced ABVD for 4 cycles -12/19/2019 PET-CT: Significant improvement noted in the bilateral neck and mediastinal hypermetabolic uptake. Improvement noted in size as well. -02/20/2020 PET/CT scan. A single focus of left cervical chain with SUV of 6.57 -04/30/20-05/28/20 ISRT 36 Gy to DS4 focus L neck 30 Gy to BL cervical, supraclav, axillae in 20 fractions -07/16/20 PET left cervical node DS2, new uptake in the left posterior 6th rib. Elected short term follow up PET for this indeterminate new focus -10/01/19 PET CR, no residual foci of avidity, resolution of left 6th rib uptake Survivorship Supra-diaphragmatic table: Test Due Next Last result Notes TSH, T4 6m post-tx, then q1y Due - 10/16/20 order Carotid US q10 y post-tx 2029 Echocardiogram q10 y post-tx 2029 Mammo & MRI q1y @10 y post-tx or age 40 2029 CXR q1y once CR confirmed 2021 CBC,CMP, Lipids q1y 2021 Interval History Curry feels well. 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 Family is well. She has auto-titrated off her AED, looking for a new neurologist has contacts in [facility], hoping for telehealth visit soon. She has no pain. Minimal LANDEROS when she exerts herself, scant wheezing with this. Not interested in inhaler at this time. No pain to speak of. Appetite good weight and energy levels stable. No further dysphagia. Due to see [facility] for well woman visit soon. Has some menstrual concerns re cramping. No skin concerns Current Therapy Surveillance/survivorship Stage Classic HL (NS variant) stage IIA unfavorable, supradiaphragmatic bulk Social History: Non smoker Does not drink Allergies / Meds Allergies: Coded Allergies: Penicillins (Verified Allergy, Unknown, 10/05/19) VOMITING amoxicillin (Verified Allergy, Unknown, 10/05/19) VOMITING Home Meds Active Scripts Prochlorperazine Maleate (Prochlorperazine Maleate) 10 Mg Tablet, 1 TAB PO Q4- 6HP PRN for NAUSEA, #40 TAB 1 Refill Prov:ROSANA MONTEMAYOR MD 10/26/19 Ondansetron HCl (Ondansetron HCl) 8 Mg Tablet, 8 MG PO BID for nausea/vomiting, #30 TAB 1 Refill TAKE ONE TAB BY MOUTH TWICE A DAY ON DAYS 2-5 OF CHEMO, THEN THREE TIMES A DAY NEEDED FOR NAUSEA Prov:ROSANA MONTEMAYOR MD 10/26/19 Reported Medications Rizatriptan Benzoate (Rizatriptan) 10 Mg Tab.rapdis, 10 MG PO DAILY 01/29/20 Norgestimate-Ethinyl Estradiol (Sbt-Od-Ehngnvbm Tablet) 1 Each Tablet, 1 TAB PO DAILY for 30 Days, #30 TAB 12/25/19 Fexofenadine HCl (Celeste Allergy) 180 Mg Tablet, 180 MG PO DAILY for allergy symptoms for 30 Days, #30 TAB 11/27/19 Mv-Min/Iron/Folic/Calcium/Vitk (Women's Multivitamin Tablet) 1 Each Tablet, 1 TAB PO DAILY, TAB 10/23/19 Zonisamide (Zonisamide) 100 Mg Capsule, 300-400 MG PO QPM for 30 Days, CAP 10/05/19 Lamotrigine (Lamotrigine) 200 Mg Tablet, 600 MG PO DAILY for 30 Days, #30 TAB 10/05/19 Review of Systems Review of Systems Constitutional: Denies: Chills, Fever, Night Sweats, Weakness, Fatigue, Weight Loss Eyes: Denies: Pain HEENT: Denies: Head Aches Skin: Denies: Rash Pulmonary: Reports: Dyspnea; Denies: Cough Cardiovascular: Denies: Chest Pain, Palpitations Gastrointestinal: Denies: Nausea, Vomiting, Abdominal Pain Genitourinary: Denies: Dysuria, Frequency Hematologic: Denies: Bruising, Bleeding Excessively Endocrine: Denies: Polydipsia, Polyphagia, Cold Intolerance Musculoskeletal: Denies: Neck pain, Back pain Neurological: Denies: Weakness, Numbness, Seizures Psych: Denies: Anxiety, Depression Physical Examination Vital Signs Wt 144 T 97.8 P 108 RR 18 BP 130/86 O2 96% Pain 0 Fatigue 0 General Exam: Positive: Alert, Cooperative; Negative: No Acute Distress Eye Exam: Positive: PERRLA, EOMI ENT EXAM: Positive: Atraumatic, Mucous membr. moist/pink, Pharynx Normal Neck Exam: Positive: Supple; Negative: Thyromegaly, Lymphadenopathy, Other (No skin changes post RT) Chest Exam: Positive: Clear to auscultation, Normal air movement; Negative: Wheezing Heart Exam: Positive: Rate Normal, Regular Rhythm Abdomen Exam: Positive: Normal bowel sounds, Soft; Negative: Tenderness, Hepatospenomegaly, Mass Extremity Exam: Negative: Edema Skin Exam: Positive: Nl turgor and temperature Neuro Exam: Positive: Normal Gait, Strength at 5/5 X4 ext, Cranial Nerves 3-12 NL Psych Exam: Positive: Mental status NL, Mood NL Diagnostic and Laboratory Diagnostic Review Radiologic images, relevant labs and pathology reports were personally reviewed and discussed with Ms. Romo. Assessment and Plan Impression Assessment Ms. 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 She completed 4 cycles of ABVD and had a persistent focus of DS 4 disease in a left cervical node on post chemotherapy PET. She underwent ISRT with 36 Gy to the left cervical node and 30 Gy to initially involved sites of disease in 20 fractions completed on 05/28/20. On post RT PET from 07/16/20 to confirm CR the left cervical node responded and was DS 2, there was however a new focus in the left posterior 6th rib of undetermined significance. This was followed with PET on 10/01/20 which revealed no uptake in the rib and no uptake in the neck confirming CR. She is seen today to initiate survivorship phase of care. Previously spoke to her on the phone regarding the PET results showing remission. She has recovered from the acute side effects of treatment nicely. She feels relatively back to baseline. She may have some mild exercise intolerance as a result of treatment/quarantine we agreed to observe this for now. As for survivorship care, I explained that I follow NCCN/COG guidelines for Hodgkin lymphoma, and that she is due for check of thyroid function now, then if normal this can be done as part of annual labs onward. I have appended a chart to keep track of recommended studies to the history portion of the note and if she is ever to leave my care (because of a move or 's assignment), I would provide her with records and a treatment summary to take with her. I would also personally facilitate referral to a center competent in survivorship care. She is seeing Dr. Kang next week and can have her TFTs drawn in conjunction with the labs she is also due for. I will see her again in 6 months time given her remission and lack of active t reatment related issues. Performance Status ECOG [address] Kang next week Follow up in 6 months Ms. Romo was encouraged to call with questions or concerns in the interim period. CASSIE VALENZUELA MD Oct 16, 2020 16:16
== END ==
LOC: M ONCR 14:45
PROVIDERS: ATTEND General Practice
DX: C81.18 Nodular sclerosis Hodgkin lymphoma, lymph nodes of multiple sites (principal); Z92.21 Personal history of antineoplastic chemotherapy

== ENCOUNTER → 2021-02-04 | Outpatient (POV) | payer OTHER ==
[~2021-02-04] VITALS: Ht 157.5 cm; Wt 70.5 kg
[~2021-02-04] MED LIST changes: +LIDO1CRE42 TOP; -LIDO2.5C15 TOP
[2021-02-04 15:02] VITALS: BP 141/80
--- NOTE | 2021-02-05 17:27 | IRCOV ---
[facility] IR Consult Office Visit IR Consult Office Visit DATE: February 04, 2021 REASON FOR CONSULTATION/CHIEF COMPLAINT: Port removal. HISTORY OF PRESENT ILLNESS: 25-year-old female with history of Hodgkin's lymphoma now status post treatment. Patient would like her port removed. She is currently under watchful observation. No current treatment going on. Patient is not keen to wait for her next surveillance scan. Patient is not on any blood thinners. Oncology is aware the patient would like her port removed. No pain at the site. No fevers or chills. Port worked well. ALLERGIES: Please see below. HOME MEDICATIONS: Please see below. 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 Migraines PAST SURGICAL HISTORY: Right chest port placed September 2019. FAMILY HISTORY: Noncontributory. SOCIAL HISTORY: Nonsmoker. Occasional alcohol. Denies drugs. REVIEW OF SYSTEMS: Otherwise negative. PHYSICAL EXAMINATION: VITAL SIGNS: Please see below. GENERAL APPEARANCE: Appears well. Comfortable at rest. HEENT: No scleral icterus. RESPIRATORY: Normal breathing at rest. CARDIOVASCULAR: Normal rate. ABDOMEN: Right chest port healed. No redness, fluctuance or port exposure. Abdomen Nontender. EXTREMITIES: No edema. NEUROLOGICAL: Alert and oriented. PSYCHIATRIC: Appropriate to circumstance. LABORATORY DATA: 01/22/2021 hemoglobin 15.4 hematocrit 45 WBC 7.6 platelets 292 sodium 139 potassium 3.4 BUN 10 creatinine 0.73 GFR greater than 60 INR 0.9 Imaging: I personally reviewed the PET/CT performed September 2020. Right-sided chest port in appropriate position. ASSESSMENT/PLAN: 25-year-old female, currently under watchful observation with medical oncology for Hodgkin's lymphoma. Patient has received some chemotherapy. Her most up-to-date PET/CT is not entirely disease-free. She is scheduled for follow-up scans to evaluate for recurrent or worsening malignant disease. However, she would like her port removed. Oncology is aware and agreeable. We have scheduled the patient for port removal. I spent 30 minutes reviewing patient's records, imaging and in consultation with the patient. Thank you for this referral. Cc Dr. Kang Allergies Coded Allergies: Penicillins (Verified Allergy, Unknown, 10/05/19) VOMITING amoxicillin (Verified Allergy, Unknown, 10/05/19) VOMITING Home Medications Scheduled Fexofenadine HCl (Celeste Allergy), 180 MG PO DAILY, (Reported) Mv-Min/Iron/Folic/Calcium/Vitk (Women's Multivitamin Tablet), 1 TAB PO DAILY, (Reported) Norgestimate-Ethinyl Estradiol (Sir-Ou-Epcappvz Tablet), 1 TAB PO DAILY, (Reported) Ondansetron HCl (Ondansetron HCl), 8 MG PO BID Rizatriptan Benzoate (Rizatriptan), 10 MG PO DAILY, (Reported) Scheduled PRN Prochlorperazine Maleate (Prochlorperazine Maleate), 1 TAB PO Q4-6HP PRN for NAUSEA VS, I&O, 24H, Fishbone Vital Signs/I&O Vital Signs Date Time Temp Pulse Resp B/P (MAP) Pulse Ox O2 Delivery O2 Flow Rate FiO2 02/04/21 15:02 98.8 100 20 141/80 (100) 94 Room Air BEVERLY HOLLOWAY MD February 05, 2021 17:27
== END ==
LOC: M IRPOV 14:31
PROVIDERS: ATTEND Radiology Diagnostic Radiology
DX: Z45.2 Encounter for adjustment and management of vascular access device (principal); C81.90 Hodgkin lymphoma, unspecified, unspecified site; Z79.3 Long term (current) use of hormonal contraceptives; Z88.0 Allergy status to penicillin; Z88.1 Allergy status to other antibiotic agents; Z92.21 Personal history of antineoplastic chemotherapy

== ENCOUNTER → 2021-02-12 | Outpatient (CLI) | payer OTHER ==
[~2021-02-12] MED LIST changes: +LIDOCAINE 1% MDV 20ML VIAL As Ordered ONE; +MIDAZOLAM INJ 2MG/2ML VIAL (J2250 PER 1MG) As Ordered ONE; +VANCOMYCIN 1000MG/20ML VIAL As Ordered ONE; +diphenhydrAMINE 50MG/ML VIAL (J1200) As Ordered ONE; +fentaNYL 100 MCG/2 ML INJECTION (J3010) As Ordered ONE
--- NOTE | 2021-02-12 12:42 | IRHP ---
[facility] IR Pre-Procedure H & P General Date of Service: February 12, 2021 Procedure: Same Day Surgery Interval History and Physical I have seen the patient and reviewed last H & P performed within 30 days. There is no significant interval change. History of Present Illness Chief Complaint The patient is a 25-year-old female admitted with a reason for visit of Treatment Complete. PRE-PROCEDURE DIAGNOSIS: lymphoma . tx complete. pt would like port removed. HEART: normal rate. LUNGS: normal breathing at rest. ASA Classification ASA Classification: II-Mild systemic disease Mallampati Score: II NPO: Yes Problems with prior sedation: No Obstructive Sleep Apnea: No Plan moderate sedation Allergies Coded Allergies: Penicillins (Verified Allergy, Unknown, 10/05/19) VOMITING amoxicillin (Verified Allergy, Unknown, 10/05/19) VOMITING Home Medications Scheduled Fexofenadine HCl (Celeste Allergy), 180 MG PO DAILY, (Reported) Mv-Min/Iron/Folic/Calcium/Vitk (Women's Multivitamin Tablet), 1 TAB PO DAILY, (Reported) Norgestimate-Ethinyl Estradiol (Czi-Gr-Mplmrnbu Tablet), 1 TAB PO DAILY, (Reported) Ondansetron HCl (Ondansetron HCl), 8 MG PO BID Rizatriptan Benzoate (Rizatriptan), 10 MG PO DAILY, (Reported) Scheduled PRN Prochlorperazine Maleate (Prochlorperazine Maleate), 1 TAB PO Q4-6HP PRN for NAUSEA BEVERLY HOLLOWAY MD February 12, 2021 12:42
--- NOTE | 2021-02-12 14:05 | IRPON ---
IR Postoperative Note Date Of Procedure: February 12, 2021 Time Of Procedure: 14:04 IR Postoperative Note IR Port Removal / Explant. IR Moderate sedation. Clinical Information:Lymphoma. Treatment complete. Patient would like port removed. Physician: Dr. Bailey Procedure: The patient was advised of the benefits, risks, and alternatives of the procedure and informed consent was obtained. A time out was performed with verification of the patient's name, MRN, site of procedure, and type of procedure to be performed. The patient was positioned in the supine position on the angiographic table. The site was prepped and draped in the usual sterile fashion. Moderate sedation was performed by the physician including the presence of an independent trained RN who assisted in monitoring the patient's level of consciousness and physiological status. Following the administration of fentanyl and Versed the physician spent 30 minutes of continuous mlon-hn-selx time with the patient. A framing mechanic radiograph reveals a right sided port. The soft tissues overlying the port were anesthetized with lidocaine. An incision was made over the port using a 15 blade scalpel in the location of the prior incision. The catheter was then freed with blunt dissection and extracted. Pressure was applied to obtain hemostasis. The port was then freed with blunt dissection and subsequently removed. There were no signs of infection. After hemostasis was achieved, the incision was closed with interrupted deep 3-0 Vicryl sutures and subcuticular Monocryl suture followed by glue and steri-strips. The site was covered with a sterile dressing. The patient tolerated the procedure well and was returned to the PRU in stable condition. EBL:Less than 5 mL Complications:None. Conclusions: 1. Successful explant of a right-sided port. 2. No signs of infection. Thank you for this referral BEVERLY BAILEY MD February 12, 2021 14:05
[2021-02-12 15:15] VITALS: BP 125/78
== END ==
LOC: M IRPRO 11:54
PROVIDERS: ATTEND Radiology Diagnostic Radiology
DX: Z45.2 Encounter for adjustment and management of vascular access device (principal); C85.90 Non-Hodgkin lymphoma, unspecified, unspecified site; Z79.899 Other long term (current) drug therapy; Z88.0 Allergy status to penicillin; Z88.1 Allergy status to other antibiotic agents
CPT/HCPCS: 36590; 99152; 99153; J1200; J1644; J2250; J3010; J3370

== ENCOUNTER → 2021-03-11 | Outpatient (POV) | payer OTHER ==
[~2021-03-11] MED LIST changes: -LIDOCAINE 1% MDV 20ML VIAL As Ordered ONE; -MIDAZOLAM INJ 2MG/2ML VIAL (J2250 PER 1MG) As Ordered ONE; -VANCOMYCIN 1000MG/20ML VIAL As Ordered ONE; -diphenhydrAMINE 50MG/ML VIAL (J1200) As Ordered ONE; -fentaNYL 100 MCG/2 ML INJECTION (J3010) As Ordered ONE
--- NOTE | 2021-03-12 14:03 | IRPN ---
[facility] IR Progress Note IR Progress Note DATE: Mar 11, 2021 Patient requested a telephone follow-up because she could not come to our site. I spent 5 minutes talking to the patient on the phone. Patient also sent images of her port removal site which I reviewed. FOLLOW-UP: Status post port removal. Patient states she is doing well. She denies fevers or chills or pain at site. ON EXAMINATION: Patient sent images of her port removal site. Port removal site appears to be healing well with no redness or discharge. IMPRESSION: Doing well status post port removal. No further follow-up scheduled unless initiated by patient and/or referring provider. Thank you for this referral Allergies Coded Allergies: Penicillins (Verified Allergy, Unknown, 10/05/19) VOMITING amoxicillin (Verified Allergy, Unknown, 10/05/19) VOMITING BEVERLY HOLLOWAY MD Mar 12, 2021 14:03
== END ==
LOC: M IRPOV 11:15
PROVIDERS: ATTEND Radiology Diagnostic Radiology
DX: Z45.2 Encounter for adjustment and management of vascular access device (principal)

== ENCOUNTER → 2021-04-14 | Outpatient (CLI) | payer OTHER ==
[~2021-04-14] MED LIST changes: +GASTROGRAFIN SOLUTION 30ML (Q9963) As Ordered ONE; +ISOVUE-370 76% 100ML VIAL As Ordered ONE
--- NOTE | 2021-04-14 13:40 | REPVR ---
PROCEDURE INFORMATION: Exam: CT Neck With Contrast Exam date and time: 04/14/2021 1:09 PM Age: 25 years old Clinical indication: Condition or disease; Cancer; Other: Hodgkins lymphoma TECHNIQUE: Imaging protocol: Computed tomography images of the neck with contrast. Radiation optimization: All CT scans at this facility use at least one of these dose optimization techniques: automated exposure control; mA and/or kV adjustment per patient size (includes targeted exams where dose is matched to clinical indication); or iterative reconstruction. Contrast material: ISOVUE 370; Contrast volume: 100 ml; Contrast route: INTRAVENOUS (IV); COMPARISON: PT PET/CT Skull/mid thigh 10/01/2020 10:40 AM FINDINGS: Brain: The visualized base of the brain is within normal limits for age. Orbital cavity: The orbits are intact. Mastoid air cells: Mastoids are well aerated. Paranasal sinuses: Mild polypoid thickening in the right maxillary sinus. The right frontal sinus is aplastic. No air-fluid levels. Nasopharynx: Unremarkable. Dental: Artifact from patient's dental hardware. Oropharynx: Unremarkable. No significant tonsillar enlargement. Hypopharynx: Unremarkable. Larynx: Unremarkable. Normal epiglottis. Retropharyngeal space: Unremarkable. Submandibular/Parotid glands: Normal. Glands are normal in size. Thyroid: Normal. No enlarged or calcified nodules. Lymph nodes: No confluent lymphadenopathy. Small nodes most pronounced at the thoracic inlet and along the anterior cervical region on the left. Trachea: Visualized trachea is unremarkable. Lungs: The included lungs are clear. Esophagus: Mildly patulous esophagus. Bones/joints: No acute fracture. No lytic or blastic disease. Vasculature: No venous thrombus. Soft tissues: No dominant neck mass. IMPRESSION: No confluent lymphadenopathy or dominant neck mass. Electronically signed by: Cristino Kendall On 04/14/2021 13:40:14 PM
--- NOTE | 2021-04-14 13:56 | REP ---
INDICATION: HODGKINS LYMPHOMA. COMPARISON: 10/10/2019 TECHNIQUE: Oral Gastrografin mixture according to our bowel contrast protocol followed by bolus 100 mL Isovue 370 scanning through the abdomen and pelvis. Coronal and sagittal reconstructions provided. Delayed images through the abdomen also provided. FINDINGS: CT abdomen: There is no hiatal hernia. Stomach well filled with oral contrast and without wall thickening or mass. Sub 4 mm hypodense focus in the right hepatic lobe anteriorly on image 26 on delayed images, image 24 on the venous images is too small to characterize. There is no hepatomegaly or intrahepatic biliary dilatation. No adjacent ascites. No splenomegaly or focal splenic lesion. Gallbladder shows no calcified stone or mass pancreas shows no mass, ductal dilatation, calcification in the course of the common duct nor evidence of peripancreatic adenopathy or fluid. Adrenal glands normal. There is an upper pole simple cyst in the left kidney actually slightly smaller than on the previous study and representing simple cyst. No evidence for obstruction, renal stone, hydroureter or ureteral stone. No solid renal mass the aorta without aneurysm noted. No periaortic, other retroperitoneal or intra-pathologic sized lymphadenopathy. The lung window review shows no perforation or free air in the abdomen or pelvis. Bones of the spine and lower ribs were normal. CT pelvis: Bony pelvis shows the sacrum, pelvis and hips without any acute finding. Abdominal and pelvic portions of the colon are normal. Small bowel loops were unremarkable there are no inflammatory changes about the cecum. Few tiny nodes are seen in the mesentery about the cecum which I would regard is normal the bladder is nearly completely empty without bladder wall thickening or stone. No distal ureteral dilatation or stone. Uterus anteverted and not enlarged. There is no ventral or inguinal hernia nor pathologic sized inguinal adenopathy. No pelvic lymphadenopathy. Distal left colon, sigmoid and rectum without acute finding. IMPRESSION: 1. Left renal cyst slightly smaller than last year without evidence of pathologic sized abdominal or pelvic lymphadenopathy, ascites, mass or other acute finding. Negative exam. <Electronically signed by Jaime Blas > 04/14/21 [id number]
--- NOTE | 2021-04-14 15:29 | REP ---
INDICATION: HODGKINS LYMPHOMA. COMPARISON: 11/02/2019 TECHNIQUE: Bolus 100 mL Isovue 370 scanning through the chest with coronal and sagittal reconstructions. FINDINGS: Of the lung wallis are well inflated. There is no infiltrate, pleural effusion, pleural thickening or pleural based mass. No pulmonary nodules seen I see no fibrotic interstitial or chronic changes to suggest radiation pneumonitis. Heart is not enlarged. There is no pericardial thickening or effusion. The bulky right paratracheal, prevascular space, AP window and left axillary nodes are all resolved. The bulky left neck base adenopathy is also resolved but that will be more fully evaluated the CT soft tissue neck this date. Heart size not enlarged no pericardial thickening or effusion. The aorta is without aneurysm or dissection. Central pulmonary arteries are without filling defect within the mediastinum. Small triangular shaped thymic remnant in the superior mediastinum is noted. Subcentimeter right hilar node evident as a benign finding. No right axillary nodes or supraclavicular adenopathy. Bone windows show thoracic spine and posterior elements as well as adjacent vertebral levels, sternum, manubrium, visible portions of clavicles, scapulae, humeral heads and ribs all unremarkable and without focal abnormality there was no hiatal hernia. Please see CT abdomen pelvis report this date for discussion of abdominal findings. IMPRESSION: 1. Complete clearing of the bulky adenopathy in the mediastinal regions, left axillary and neck base as described. No residual pathologic sized adenopathy at this time. 2. Lung wallis are clear. Heart not enlarged. No pericardial thickening or effusion. 3. Bones are unremarkable. No evidence of radiation change in the lung wallis. <Electronically signed by Jaime Blas > 04/14/21 [id number]
== END ==
LOC: M RAD 11:09
PROVIDERS: ATTEND Specialist
DX: C81.90 Hodgkin lymphoma, unspecified, unspecified site (principal); N28.1 Cyst of kidney, acquired
CPT/HCPCS: 70491; 71260; 74177; Q9963; Q9967

== ENCOUNTER → 2021-04-16 | Outpatient (CLI) | payer OTHER ==
[~2021-04-16] MED LIST changes: -GASTROGRAFIN SOLUTION 30ML (Q9963) As Ordered ONE; -ISOVUE-370 76% 100ML VIAL As Ordered ONE
--- NOTE | 2021-04-16 16:23 | RADONC ---
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 She completed 4 cycles of ABVD and had a persistent focus of DS 4 disease in a left cervical node on post chemotherapy PET. She underwent ISRT with 36 Gy to the left cervical node and 30 Gy to initially involved sites of disease in 20 fractions completed on 05/28/20. On post RT PET from 07/16/20 to confirm CR the left cervical node responded and was DS 2, there was however a new focus in the left posterior 6th rib of undetermined significance. This was followed with PET on 10/01/20 which revealed no uptake in the rib and no uptake in the neck confirming CR. She is seen today for ongoing survivorship care and surveillance. Diagnosis/Treatment History Oncologic History Stage IIA early unfavorable NSHD (bulk) Meets 1/4 criteria for unfavorable disease, i.e., has 4 sites of disease - b/l neck, mediastinal, LAD and left axillary LAD, but otherwise has no bulky mediastinal disease, no B symptoms and ESR is 23. Initial CT Neck/Chest- largest Lt neck conglomerate lymph node mass 4.5 x 3.5 cm, largest right paratracheal mass 3.5 x 3.4 cm, no hilar LAD, left axilla - 1.[address], right neck/right supraclavicular largest LN 0.8 x 1.2 cm, ESR 23 on 10/05/19 -09/11/2019- left level [address] BX - classical Hodgkin's lymphoma, nodular sclerosis. (-) CD23, (-) CD20, (-) CD45/LCA (-), DELIO RK (-), CD15 Elsie M1 - focally positive, CD30 (+), PAX5 weakly (+) - IHC C/subdural nodular sclerosis subtype. -Relocated to [place]. -10/06/19- MUGA EF - 70.3%, 10/17/19 baseline PET multiple hypermetabolic foci in the neck b/l and chest. -10/30/2019: commenced ABVD for 4 cycles -12/19/2019 PET-CT: Significant improvement noted in the bilateral neck and mediastinal hypermetabolic uptake. Improvement noted in size as well. -02/20/2020 PET/CT scan. A single focus of left cervical chain with SUV of 6.57 -04/30/20-05/28/20 ISRT 36 Gy to DS4 focus L neck 30 Gy to BL cervical, supraclav, axillae in 20 fractions -07/16/20 PET left cervical node DS2, new uptake in the left posterior 6th rib. Elected short term follow up PET for this indeterminate new focus -10/01/19 PET CR, no residual foci of avidity, resolution of left 6th rib uptake -02/12/21 Port removed -04/14/21 CT chest abdomen pelvis negative Survivorship Test Due Next Last result Notes TSH, T4 6m post-tx, then q1y September 2021 Carotid US q10 y post-tx 2029 Echocardiogram q10 y post-tx 2029 Mammo & MRI q1y @10 y post-tx or age 40 2029 CXR q1y once CR confirmed 04/14 CTs negative CBC,CMP, Lipids q1y September 2021 PFTs As clinically indicated Due today Persistent LANDEROS Interval History Curry reports that she notes some LANDEROS insidious since completing her treatments. Has to stop and catch her breath after walking for ~10 minutes duration, previous to treatment was able to jog and had relatively goof exercise tolerance. Finds some chest pain associated with the windedness, more at the periphery of the chest, no substernal or crushing, non-radiating. She has no additional complaints today other than ongoing mild dysgeusia (NB cheesecake). Appetite is good, no dysphagia concerns. No skin concerns s/p RT. Current Therapy Surveillance/survivorship Stage Classic HL (NS variant) stage IIA unfavorable, supradiaphragmatic bulk Social History: Non smoker Does not drink Allergies / Meds Allergies: Coded Allergies: Penicillins (Verified Allergy, Unknown, 10/05/19) VOMITING amoxicillin (Verified Allergy, Unknown, 10/05/19) VOMITING Home Meds Active Scripts Prochlorperazine Maleate (Prochlorperazine Maleate) 10 Mg Tablet, 1 TAB PO Q4- 6HP PRN for NAUSEA, #40 TAB 1 Refill Prov:ROSANA MONTEMAYOR MD 10/26/19 Ondansetron HCl (Ondansetron HCl) 8 Mg Tablet, 8 MG PO BID for nausea/vomiting, #30 TAB 1 Refill TAKE ONE TAB BY MOUTH TWICE A DAY ON DAYS 2-5 OF CHEMO, THEN THREE TIMES A DAY NEEDED FOR NAUSEA Prov:ROSANA MONTEMAYOR MD 10/26/19 Reported Medications Rizatriptan Benzoate (Rizatriptan) 10 Mg Tab.rapdis, 10 MG PO DAILY 01/29/20 Norgestimate-Ethinyl Estradiol (Krh-Ro-Ykgzjoxk Tablet) 1 Each Tablet, 1 TAB PO DAILY for 30 Days, #30 TAB 12/25/19 Fexofenadine HCl (Celeste Allergy) 180 Mg Tablet, 180 MG PO DAILY for allergy symptoms for 30 Days, #30 TAB 11/27/19 Mv-Min/Iron/Folic/Calcium/Vitk (Women's Multivitamin Tablet) 1 Each Tablet, 1 TAB PO DAILY, TAB 10/23/19 Review of Systems Review of Systems Constitutional: Denies: Chills, Fever, Weight Loss Eyes: Denies: Pain HEENT: Reports: Head Aches (Usual migraines) Skin: Denies: Rash Pulmonary: Reports: Dyspnea, Pleuritic Chest Pain; Denies: Cough Cardiovascular: Denies: Chest Pain, Palpitations, Edema Gastrointestinal: Denies: Nausea, Abdominal Pain Hematologic: Denies: Bruising, Bleeding Excessively Endocrine: Denies: Cold Intolerance Musculoskeletal: Denies: Neck pain, Back pain, Joint pain Neurological: Denies: Weakness, Numbness Psych: Reports: Mood Normal Physical Examination Vital Signs Wt 162 lbs T 97.2 P 111 RR 20 BP 118/72 O2 97% Pain 0 Fatigue 0 General Exam: Positive: Alert, Cooperative, No Acute Distress Eye Exam: Positive: PERRLA, EOMI ENT EXAM: Positive: Atraumatic, Pharynx Normal Neck Exam: Positive: Supple; Negative: Lymphadenopathy Chest Exam: Positive: Clear to auscultation, Normal air movement Heart Exam: Positive: Rate Normal, Regular Rhythm Abdomen Exam: Positive: Normal bowel sounds, Soft Extremity Exam: Negative: Edema Skin Exam: Positive: Nl turgor and temperature Neuro Exam: Positive: Normal Gait, Normal Speech, Cranial Nerves 3-12 NL Psych Exam: Positive: Mental status NL Other Physical Findings Lymphatic exam: No cervical, axillary, intraabdominal or inguinal nodes appreciated Diagnostic and Laboratory Diagnostic Review Radiologic images, relevant labs and pathology reports were personally reviewed and discussed with Ms. Romo. Assessment and Plan Impression Assessment Ms. 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 She completed 4 cycles of ABVD and had a p ersistent focus of DS 4 disease in a left cervical node on post chemotherapy PET. She underwent ISRT with 36 Gy to the left cervical node and 30 Gy to initially involved sites of disease in 20 fractions completed on 05/28/20. On post RT PET from 07/16/20 to confirm CR the left cervical node responded and was DS 2, there was however a new focus in the left posterior 6th rib of undetermined significance. This was followed with PET on 10/01/20 which revealed no uptake in the rib and no uptake in the neck confirming CR. She is seen today for ongoing survivorship care and surveillance. We discussed obtaining full PFTs for her persistent dyspnea as she has received both bleomycin and mediastinal RT. Will call her results of these once obtained. If there are abnormalities I would refer her to pulmonology. With respect to imaging she is in continued remission. She is due for blood work at next visit CBC,CMP,lipids, and TFTs. Will mail lab slip to her in advance of that appointment. Otherwise she is doing very well without other evidence of late treatment sequelae. I will see her again in 6 months time. Performance Status ECOG 0 Plan Full PFTs will call with results Referral to pulmonology if abnormalities identified TFTs, CBC, CMP, lipids at next visit Follow up in 6 months Ms. Romo was encouraged to call with questions or concerns in the interim period. Billing Statement Total time of [32] minutes was spent preparing for the visit [1], obtaining HPI [6], examining the patient [3], reviewing diagnostic tests [3], discussing management options [7], coordinating care [3], and writing this note [9]. CASSIE VALENZUELA MD Apr 16, 2021 16:23
== END ==
LOC: M ONCR 14:45
PROVIDERS: ATTEND General Practice
DX: C81.18 Nodular sclerosis Hodgkin lymphoma, lymph nodes of multiple sites (principal); R06.09 Other forms of dyspnea; Z88.0 Allergy status to penicillin; Z92.21 Personal history of antineoplastic chemotherapy; Z92.3 Personal history of irradiation

== ENCOUNTER → 2021-04-23 | Outpatient (CLI) | payer OTHER ==
--- NOTE | 2021-04-23 09:43 | PFTRPT ---
Height: 63.00 Inches Weight: 160.00 Lbs BSA: 1.76 Diagnosis: LANDEROS DATE: 04/23/2021 ORDERING PHYSICIAN: CASSIE VALENZUELA MD Pre and post bronchodilator studies have excellent technical quality. Forced vital capacity is normal. FEV1 is in proportion. Obstructive index is therefore normal. Expiratory limit of the flow-volume loop is normal. No significant bronchodilator response is identified. Total lung capacity is normal. Residual volume is in proportion. Diffusing capacity is normal. No hemoglobin available for correction. Airway resistance and conductance are normal. IMPRESSION: Normal study. MTDD
== END ==
LOC: M CARPUL 08:55
PROVIDERS: ATTEND General Practice
DX: C81.18 Nodular sclerosis Hodgkin lymphoma, lymph nodes of multiple sites (principal)

== ENCOUNTER → 2021-10-15 | Outpatient (CLI) | payer OTHER ==
[~2021-10-15] MED LIST changes: +NORE0.353; +ONDA-84 PO; -ONDA8TAB10 PO; +POTA-151 PO; -POTA20TA6 PO; -PROC10TA4 PO; +PROC10TA5 PO
[2021-10-15 15:52] LABS: BASO % 0.5 % (0.0-1.0); EOS # 0.3 10^3/uL (0.0-0.5); EOS % 3.4 % (0.0-3.0); HEMATOCRIT 44.5 % (36.0-47.0); HEMOGLOBIN 14.7 g/dl (12.0-15.5); LYMPH # 1.7 10^3/uL (1.5-5.0); LYMPH % 21.8 % (24.0-44.0); MEAN CORPUSCULAR HEMOGLOBIN 30.6 pg (27.0-33.0); MEAN CORPUSCULAR VOLUME 92.7 fl (80.0-96.0); MONO # 0.9 10^3/uL (0.0-0.8); MONO % 11.1 % (2.0-8.0); NEUTROPHILS # 4.9 10^3/uL (1.5-8.5); NEUTROPHILS % 62.8 % (36.0-66.0); PLATELET COUNT, AUTOMATED 365 10^3/uL (150-450); WHITE BLOOD COUNT 7.8 10^3/uL (4.0-10.0)
[2021-10-15 16:22] LABS: ALBUMIN 3.8 GM/DL (3.2-5.2); ALT/SGPT 24 U/L (12-78); BILIRUBIN,TOTAL 0.2 MG/DL (0.2-1.0); BLOOD UREA NITROGEN 11 MG/DL (7-18); CALCIUM LEVEL 9.4 MG/DL (8.5-10.1); CARBON DIOXIDE LEVEL 32 MEQ/L (21-32); CHLORIDE LEVEL 107 MEQ/L (98-107); CHOLESTEROL LEVEL 162 MG/DL (<200); CREATININE FOR GFR 0.77 MG/DL (0.55-1.30); FREE T4 1.04 NG/DL (0.76-1.46); GLOMERULAR FILTRATION RATE > 60.0 (>60); GLUCOSE, FASTING 92 MG/DL (70-100); HDL CHOLESTEROL 50 MG/DL (>40); LDL CHOLESTEROL 82 MG/DL (<100); NON-HDL-C 112 MG/DL; POTASSIUM SERUM 3.6 MEQ/L (3.5-5.1); SODIUM LEVEL 143 MEQ/L (136-145); TOTAL PROTEIN 7.5 GM/DL (6.4-8.2); TRIGLYCERIDES LEVEL 150 MG/DL (<150)
== END ==
LOC: M ONCR 14:26
PROVIDERS: ATTEND General Practice
DX: C81.18 Nodular sclerosis Hodgkin lymphoma, lymph nodes of multiple sites (principal); Z92.3 Personal history of irradiation; Z92.21 Personal history of antineoplastic chemotherapy; Z88.0 Allergy status to penicillin; Z88.1 Allergy status to other antibiotic agents
CPT/HCPCS: 36415; 80053; 80061; 84439; 84443; 85025; G0463

== ENCOUNTER → 2021-11-04 | Outpatient (CLI) | payer OTHER ==
[~2021-11-04] MED LIST changes: +GASTROGRAFIN SOLUTION 30ML (Q9963) As Ordered ONE; +ISOVUE-370 76% 100ML VIAL As Ordered ONE
== END ==
LOC: M RAD 10:53
PROVIDERS: ATTEND Specialist
DX: C81.90 Hodgkin lymphoma, unspecified, unspecified site (principal); N28.1 Cyst of kidney, acquired; N20.0 Calculus of kidney
CPT/HCPCS: 70491; 71260; 74177; Q9963; Q9967

== ENCOUNTER → 2022-04-14 | Outpatient (CLI) | payer OTHER ==
[~2022-04-14] MED LIST changes: -GASTROGRAFIN SOLUTION 30ML (Q9963) As Ordered ONE; -ISOVUE-370 76% 100ML VIAL As Ordered ONE; -ZONI100C17 PO; +ZONI100C67 PO
[2022-04-14 14:57] LABS: BASO % 0.3 % (0.0-1.0); EOS # 0.2 10^3/uL (0.0-0.5); EOS % 3.1 % (0.0-3.0); HEMATOCRIT 43.3 % (36.0-47.0); HEMOGLOBIN 14.8 g/dl (12.0-15.5); LYMPH # 1.4 10^3/uL (1.5-5.0); LYMPH % 17.8 % (24.0-44.0); MEAN CORPUSCULAR HEMOGLOBIN 31.3 pg (27.0-33.0); MEAN CORPUSCULAR HGB CONC 34.2 g/dl (32.0-36.5); MEAN CORPUSCULAR VOLUME 91.5 fl (80.0-96.0); MONO # 0.8 10^3/uL (0.0-0.8); MONO % 10.8 % (2.0-8.0); NEUTROPHILS # 5.3 10^3/uL (1.5-8.5); NEUTROPHILS % 67.9 % (36.0-66.0); PLATELET COUNT, AUTOMATED 356 10^3/uL (150-450); RED BLOOD COUNT 4.73 10^6/uL (4.00-5.40); WHITE BLOOD COUNT 7.8 10^3/uL (4.0-10.0)
[2022-04-14 15:54] LABS: ALBUMIN 3.7 GM/DL (3.2-5.2); ALT/SGPT 22 U/L (12-78); BILIRUBIN,TOTAL 0.2 MG/DL (0.2-1.0); BLOOD UREA NITROGEN 14 MG/DL (7-18); CALCIUM LEVEL 9.9 MG/DL (8.5-10.1); CARBON DIOXIDE LEVEL 27 MEQ/L (21-32); CHLORIDE LEVEL 109 MEQ/L (98-107); CREATININE FOR GFR 0.69 MG/DL (0.55-1.30); FREE T4 0.95 NG/DL (0.76-1.46); GLOMERULAR FILTRATION RATE > 60.0 (>60); GLUCOSE, FASTING 98 MG/DL (70-100); POTASSIUM SERUM 4.1 MEQ/L (3.5-5.1); SODIUM LEVEL 142 MEQ/L (136-145); TOTAL PROTEIN 7.2 GM/DL (6.4-8.2)
== END ==
LOC: M ONCR 13:42
PROVIDERS: ATTEND General Practice
DX: Z08 Encounter for follow-up examination after completed treatment for malignant neoplasm (principal); Z85.71 Personal history of Hodgkin lymphoma; Z88.0 Allergy status to penicillin; Z92.21 Personal history of antineoplastic chemotherapy; Z92.3 Personal history of irradiation
CPT/HCPCS: 80053; 84439; 84443; 85025; G0463

== ENCOUNTER → 2022-04-29 | Outpatient (CLI) | payer OTHER ==
[~2022-04-29] MED LIST changes: +GASTROGRAFIN SOLUTION 30ML (Q9963) As Ordered ONE; +ISOVUE-370 76% 100ML VIAL As Ordered ONE
== END ==
LOC: M RAD 10:31
PROVIDERS: ATTEND Specialist
DX: C81.90 Hodgkin lymphoma, unspecified, unspecified site (principal)
CPT/HCPCS: 70491; 71260; 74177; Q9963; Q9967

== ENCOUNTER 2022-10-04 17:26 | Emergency (ER) | payer OTHER ==
[~2022-10-04] VITALS: Ht 157.5 cm; Wt 80.2 kg
[~2022-10-04 17:26] MED LIST changes: -GASTROGRAFIN SOLUTION 30ML (Q9963) As Ordered ONE; -ISOVUE-370 76% 100ML VIAL As Ordered ONE; -POTA10CA32 PO; +POTA10CA33 PO
[2022-10-04 19:23] LABS: BASO % 0.3 % (0.0-1.0); EOS # 0.2 10^3/uL (0.0-0.5); EOS % 1.9 % (0.0-3.0); HEMATOCRIT 42.7 % (36.0-47.0); HEMOGLOBIN 14.3 g/dl (12.0-15.5); LYMPH # 1.8 10^3/uL (1.5-5.0); LYMPH % 18.6 % (24.0-44.0); MEAN CORPUSCULAR HEMOGLOBIN 30.6 pg (27.0-33.0); MEAN CORPUSCULAR HGB CONC 33.5 g/dl (32.0-36.5); MEAN CORPUSCULAR VOLUME 91.2 fl (80.0-96.0); MONO # 0.9 10^3/uL (0.0-0.8); MONO % 8.9 % (2.0-8.0); NEUTROPHILS # 6.7 10^3/uL (1.5-8.5); PLATELET COUNT, AUTOMATED 323 10^3/uL (150-450); RED BLOOD COUNT 4.68 10^6/uL (4.00-5.40); WHITE BLOOD COUNT 9.6 10^3/uL (4.0-10.0)
[2022-10-04 19:53] LABS: BILIRUBIN,DIRECT < 0.1 MG/DL (<0.4)
[2022-10-04 20:05] LABS: ALBUMIN 3.6 G/DL (3.2-5.2); ALKALINE PHOSPHATASE 80 U/L (46-116); ALT/SGPT 25 U/L (7.0-40); AST/SGOT 69 U/L (<34); BILIRUBIN,TOTAL 0.2 MG/DL (0.3-1.2); BLOOD UREA NITROGEN 11 MG/DL (9-23); CALCIUM LEVEL 9.4 MG/DL (8.5-10.1); CARBON DIOXIDE LEVEL 25 MMOL/L (20-31); CHLORIDE LEVEL 102 MMOL/L (98-107); CREATININE FOR GFR 0.97 MG/DL (0.55-1.30); GLOMERULAR FILTRATION RATE > 60.0 (>60); GLUCOSE, FASTING 100 MG/DL (60-100); HCG, SERUM QUANTITATIVE 9616.7 MIU/ML (<4.2); LIPASE 52 U/L (12-53); POTASSIUM SERUM 5.3 MMOL/L (3.5-5.1); SODIUM LEVEL 140 MMOL/L (136-145); TOTAL PROTEIN 7.1 G/DL (5.7-8.2)
[2022-10-04] MEDS ORDERED: PREN27TA3 PO (20:14)
[2022-10-04] MEDS ORDERED: DEXTROSE 50% 50ML SYRINGE IV STA (20:23)
[2022-10-04] MEDS ORDERED: CALCIUM GLUCONATE 1,000 MG in D5W MINI-BAG PLUS 100 ML IV ONE (20:25)
[2022-10-04] MEDS ORDERED: HumuLIN R (REGULAR) INSULIN (NovoLIN R) **100U/ML** PER UNIT IV ONE (20:25)
[2022-10-04 20:26] LABS: GC DNA AMPLIFICATION NEGATIVE (NEGATIVE)
[2022-10-04] MEDS ORDERED: SOD POLYSTYRENE SULFONATE SUSP 15GM 60ML UD PO ONE (20:30)
[2022-10-04 23:10] VITALS: BP 124/90
== END 2022-10-04 23:09 | disposition home or self-care (01) ==
LOC: M ED 17:26
DX: O20.0 Threatened abortion (principal); O99.281 Endocrine, nutritional and metabolic diseases complicating pregnancy, first trimester; E87.5 Hyperkalemia; O99.351 Diseases of the nervous system complicating pregnancy, first trimester; G40.909 Epilepsy, unspecified, not intractable, without status epilepticus; O99.891 Other specified diseases and conditions complicating pregnancy; R94.31 Abnormal electrocardiogram [ECG] [EKG]; Z3A.01 Less than 8 weeks gestation of pregnancy; Z88.0 Allergy status to penicillin; Z85.71 Personal history of Hodgkin lymphoma; Z86.69 Personal history of other diseases of the nervous system and sense organs; Z98.890 Other specified postprocedural states

== ENCOUNTER 2022-10-08 15:58 | Emergency (ER) | payer OTHER ==
[~2022-10-08] VITALS: Ht 157.5 cm; Wt 80.1 kg
[~2022-10-08 15:58] MED LIST changes: +PREN27TA3 PO
[2022-10-08 17:25] LABS: BASO # 0.1 10^3/uL (0.0-0.2); BASO % 0.6 % (0.0-1.0); EOS # 0.2 10^3/uL (0.0-0.5); EOS % 2.7 % (0.0-3.0); HEMATOCRIT 47.8 % (36.0-47.0); HEMOGLOBIN 15.6 g/dl (12.0-15.5); LYMPH # 1.8 10^3/uL (1.5-5.0); LYMPH % 20.5 % (24.0-44.0); MEAN CORPUSCULAR HEMOGLOBIN 30.6 pg (27.0-33.0); MEAN CORPUSCULAR HGB CONC 32.6 g/dl (32.0-36.5); MEAN CORPUSCULAR VOLUME 93.9 fl (80.0-96.0); MONO # 0.8 10^3/uL (0.0-0.8); MONO % 8.5 % (2.0-8.0); NEUTROPHILS % 67.2 % (36.0-66.0); PLATELET COUNT, AUTOMATED 346 10^3/uL (150-450); RED BLOOD COUNT 5.09 10^6/uL (4.00-5.40); WHITE BLOOD COUNT 8.9 10^3/uL (4.0-10.0)
[2022-10-08 18:01] LABS: APPEARANCE, URINE MANUAL CLOUDY (CLEAR); COLOR, URINE MANUAL RED (YELLOW)
[2022-10-08 18:03] LABS: BILIRUBIN, URINE MANUAL NEGATIVE (NEGATIVE); BLOOD URINE MANUAL POSITIVE (NEGATIVE); GLUCOSE, URINE (UA) MANUAL NEGATIVE (NEGATIVE); KETONE, URINE MANUAL NEGATIVE (NEGATIVE); LEUKOCYTE ESTERASE, URINE MAN POSITIVE (NEGATIVE); NITRITE, URINE MANUAL NEGATIVE (NEGATIVE); PROTEIN, URINE MANUAL 1+ mg/dL (NEGATIVE); UROBILINOGEN, URINE MANUAL NORMAL (NORMAL)
[2022-10-08 18:04] LABS: BACTERIA, URINE NONE SEEN; RBC, URINE TNTC /hpf (0-3); SQUAMOUS EPITHELIAL CELL URINE SMALL AMOUNT /hpf (SMALL AMT)
[2022-10-08 21:29] VITALS: BP 137/72
== END 2022-10-09 00:29 | disposition left against medical advice (07) ==
LOC: M ED 15:58
DX: Z53.21 Procedure and treatment not carried out due to patient leaving prior to being seen by health care provider (principal)

== ENCOUNTER → 2022-11-04 | Outpatient (CLI) | payer OTHER ==
[~2022-11-04] MED LIST changes: +GASTROGRAFIN SOLUTION 30ML As Ordered ONE; +ISOVUE-370 76% 100ML VIAL As Ordered ONE
== END ==
LOC: M RAD 12:19
PROVIDERS: ATTEND Nurse Practitioner
DX: C81.90 Hodgkin lymphoma, unspecified, unspecified site (principal); K76.89 Other specified diseases of liver; N28.1 Cyst of kidney, acquired; N28.89 Other specified disorders of kidney and ureter; N20.0 Calculus of kidney; J32.0 Chronic maxillary sinusitis

== ENCOUNTER → 2022-11-17 | Outpatient (CLI) | payer OTHER ==
[~2022-11-17] MED LIST changes: +ALBU8.5H INH; -GASTROGRAFIN SOLUTION 30ML As Ordered ONE; -ISOVUE-370 76% 100ML VIAL As Ordered ONE
== END ==
LOC: M ONCR 13:22
PROVIDERS: ATTEND General Practice
DX: C81.18 Nodular sclerosis Hodgkin lymphoma, lymph nodes of multiple sites (principal); R06.2 Wheezing; Z88.0 Allergy status to penicillin; Z88.1 Allergy status to other antibiotic agents; Z92.21 Personal history of antineoplastic chemotherapy; Z92.3 Personal history of irradiation